=== PATIENT | female | born 1955 | race Caucasian/White ===

== ENCOUNTER → 2019-11-06 | Outpatient (CLI) | payer MEDICARE, MEDICAID ==
[2019-09-25 12:40] VITALS: BP 138/83
[2019-11-06 10:17] LABS: BASO # 0.1 x10^3/uL (0.0-0.2); BASO % 1 % (0-3); EOS # 0.2 x10^3/uL (0.0-0.7); EOS % 3 % (0-3); HEMATOCRIT 37.5 % (36.0-47.0); HEMOGLOBIN 12.6 g/dL (12.0-15.5); LYMPH # 2.8 x10^3/uL (1.0-4.8); LYMPH % 34 % (24-48); MEAN CORPUSCULAR HEMOGLOBIN 31 pg (25-35); MEAN CORPUSCULAR HGB CONC 34 g/dL (31-37); MEAN CORPUSCULAR VOLUME 93 fL (79-100); MONO # 0.8 x10^3/uL (0.0-1.1); MONO % 10 % (0-9); NEUT # 4.3 x10^3uL (1.8-7.7); NEUT % 53 % (31-73); PLATELET COUNT 245 x10^3/uL (140-400); RED BLOOD COUNT 4.06 x10^6/uL (3.50-5.40); RED CELL DISTRIBUTION WIDTH 13.2 % (11.5-14.5); WHITE BLOOD COUNT 8.1 x10^3/uL (4.0-11.0)
[2019-11-06 10:44] LABS: CALCIUM 9.2 mg/dL (8.5-10.1); CREATININE 1.7 mg/dL (0.6-1.0); GFR 30.4; POTASSIUM 4.5 mmol/L (3.5-5.1)
== END ==
LOC: LAB 09:48
PROVIDERS: ATTEND Internal Medicine Interventional Cardiology
DX: I10 Essential (primary) hypertension (principal); E78.2 Mixed hyperlipidemia
CPT/HCPCS: 36415; 80048; 80061; 85025

== ENCOUNTER → 2020-01-01 | Outpatient (CLI) | payer MEDICARE, MEDICAID ==
[2019-09-25 12:40] VITALS: BP 138/83
[~2020-01-01] MED LIST: HEPARIN PF 500 UNIT/5 ML DISP.SYRIN. ONE
--- NOTE | 2020-01-01 15:12 | RAD ---
DATE: 01/01/2020 1:00 PM EXAM: MAMMO NATHEN DIAG BILAT HISTORY: Bilateral breast tenderness. Patient is due for screening. Patient has no history of cancer but has poor IV access for which a right chest port has been placed. COMPARISON: 09/03/2017 Bilateral CC and MLO views of the breasts were performed. Bilateral breast tomosynthesis was performed in CC and MLO projections. This study was interpreted with the benefit of Computerized Aided Detection (CAD). FINDINGS: Breast Density: SCATTERED The breast parenchyma shows scattered fibroglandular densities. Breast parenchyma level B Interval placement of a right chest port. No suspicious masses, microcalcifications or architectural distortion is present to suggest malignancy in either breast. The visualized axillae are unremarkable. IMPRESSION: No mammographic evidence of malignancy. BI-RADS CATEGORY: 1 NEGATIVE RECOMMENDED FOLLOW-UP: 12M 12 MONTH FOLLOW-UP Annual screening mammography is recommended, unless clinically indicated sooner based on symptoms or change in physical exam. PQRS compliance statement: Patient information was entered into a reminder system with a target due date 01/01/2021 for the next mammogram. Mammography is a sensitive method for finding small breast cancers, but it does not detect them all and is not a substitute for careful clinical examination. A negative mammogram does not negate a clinically suspicious finding and should not result in delay in biopsying a clinically suspicious abnormality. "Our facility is accredited by the [employer] Mammography Program."
== END ==
LOC: MAMMO 12:12
PROVIDERS: ATTEND Family Medicine
DX: N64.4 Mastodynia (principal)
CPT/HCPCS: 77066; G0279; 77062

== ENCOUNTER → 2020-01-01 | Outpatient (CLI) | payer MEDICARE, MEDICAID ==
[~2020-01-01] MED LIST changes: +HEPARIN PF 500 UNIT/5 ML DISP.SYRIN. IVP ONE; -HEPARIN PF 500 UNIT/5 ML DISP.SYRIN. ONE
[2020-01-01 12:18] VITALS: BP 118/74
--- NOTE | 2020-01-01 12:18 | NUR ---
Jose arrived to unit via ambulation. Patients VS obtained and are stable. Patients port is accessed with 1.5in, 20g Montanez needle and flushed with 10cc NS and Heparin locked. Patients port deaccessed and bandage applied. Patient ambulated off of unit.
== END | disposition home or self-care (01) ==
LOC: OPINF 11:59
PROVIDERS: ATTEND Internal Medicine Interventional Cardiology
DX: Z45.2 Encounter for adjustment and management of vascular access device (principal); N64.4 Mastodynia; I10 Essential (primary) hypertension; E78.2 Mixed hyperlipidemia
CPT/HCPCS: 96523

== ENCOUNTER → 2020-01-23 | Outpatient (CLI) | payer MEDICARE, MEDICAID ==
[~2020-01-23] MED LIST changes: -HEPARIN PF 500 UNIT/5 ML DISP.SYRIN. IVP ONE; +HEPARIN PF 500 UNIT/5 ML DISP.SYRIN. ONE
[2020-01-23 11:21] LABS: HEMATOCRIT 36.9 % (36.0-47.0); HEMOGLOBIN 12.3 g/dL (12.0-15.5); RED CELL DISTRIBUTION WIDTH 13.1 % (11.5-14.5); WHITE BLOOD COUNT 7.4 x10^3/uL (4.0-11.0)
[2020-01-23 11:48] LABS: ALBUMIN 3.1 g/dL (3.4-5.0); CALCIUM 9.2 mg/dL (8.5-10.1); CREATININE 1.8 mg/dL (0.6-1.0); GFR 28.4; PHOSPHORUS 3.1 mg/dL (2.6-4.7); POTASSIUM 3.6 mmol/L (3.5-5.1); URIC ACID 5.1 mg/dL (2.6-6.0)
[2020-01-23 12:40] LABS: BILIRUBIN,URINE NEG (NEG); CLARITY,URINE HAZY; COLOR,URINE YELLOW; GLUCOSE,URINE 100 mg/dL (NEG); NITRITE,URINE NEG (NEG); UROBILINOGEN,URINE 0.2 mg/dL (0.2 mg/dL)
[2020-01-23 12:41] LABS: BACTERIA,URINE 0 /HPF (0-FEW); SQUAMOUS EPITHELIAL CELL,UR FEW /LPF
[2020-01-23 16:37] VITALS: BP 114/84
[2020-01-24 09:09] LABS: CALCIUM PTH 9.4 mg/dL (8.7-10.3); CREATININE PTH 1.62 mg/dL (0.57-1.00); PTH INTACT 66 pg/mL (15-65)
[2020-01-25 17:07] LABS: ALBUMIN RAND UR 20.3 % (.); ALPHA 1 RAND UR 5.6 % (.); ALPHA 2 RAND UR 18.7 % (.); BETA RAND UR 27.3 % (.); GAMMA RAND UR 28.1 % (.); PROTEIN UR RAND 18.8 mg/dL (Not Estab.)
== END | disposition home or self-care (01) ==
LOC: OPINF 10:11
PROVIDERS: ATTEND Internal Medicine Nephrology
DX: Z45.2 Encounter for adjustment and management of vascular access device (principal); I12.9 Hypertensive chronic kidney disease with stage 1 through stage 4 chronic kidney disease, or unspecified chronic kidney disease; N18.3 Chronic kidney disease, stage 3 (moderate); D63.1 Anemia in chronic kidney disease; E11.21 Type 2 diabetes mellitus with diabetic nephropathy; E78.2 Mixed hyperlipidemia; Z79.899 Other long term (current) drug therapy
CPT/HCPCS: 36415; 36592; 80069; 81001; 82043; 82306; 83735; 83970; 84166; 84550; 85027; 87086; 96523

== ENCOUNTER → 2020-03-04 | Outpatient (CLI) | payer MEDICARE, MEDICAID ==
[~2020-03-04] MED LIST changes: +HEPARIN PF 500 UNIT/5 ML DISP.SYRIN. IVP ONE; -HEPARIN PF 500 UNIT/5 ML DISP.SYRIN. ONE
[2020-03-04 12:43] VITALS: BP 127/65
--- NOTE | 2020-03-04 13:03 | NUR ---
PATIENT AMBULATED INTO ROOM 127 VITALS STABLE PORT WAS ACCESSED AND FLUSHED WITH HEPARIN PORT WAS THEN DEACCESSED WITH NO COMPLICATIONS PATIENT TO DISCHARGE HOME
== END | disposition home or self-care (01) ==
LOC: OPINF 12:08
PROVIDERS: ATTEND Internal Medicine Nephrology
DX: Z45.2 Encounter for adjustment and management of vascular access device (principal); I12.9 Hypertensive chronic kidney disease with stage 1 through stage 4 chronic kidney disease, or unspecified chronic kidney disease; E11.22 Type 2 diabetes mellitus with diabetic chronic kidney disease; N18.3 Chronic kidney disease, stage 3 (moderate); D63.1 Anemia in chronic kidney disease; E78.5 Hyperlipidemia, unspecified; E11.21 Type 2 diabetes mellitus with diabetic nephropathy; Z79.899 Other long term (current) drug therapy
CPT/HCPCS: 96374; 96523

== ENCOUNTER → 2020-04-01 | Outpatient (CLI) | payer MEDICARE, MEDICAID ==
[~2020-04-01] MED LIST changes: +HEPARIN PF 500 UNIT/5 ML DISP.SYRIN. ONE
[2020-04-01 13:06] VITALS: BP 113/69
--- NOTE | 2020-04-01 13:06 | NUR ---
NURSING NOTE PT AMBULATE TO ROOM 103 FOR OUTPT PORT FLUSH AND HEP LOCK. PORT ACCESSED WITH 20G 1 INCH URENA NEEDLE. GOOD BLOOD RETURN. PORT FLUSHED WITH 20 CC NS AND HEP LOCKED. NO COMPLICATIONS. PT AMBULATED OFF UNIT. SULTANA SAMPSON.
== END | disposition home or self-care (01) ==
LOC: OPINF 12:25
PROVIDERS: ATTEND Internal Medicine Nephrology
DX: Z45.2 Encounter for adjustment and management of vascular access device (principal); I12.9 Hypertensive chronic kidney disease with stage 1 through stage 4 chronic kidney disease, or unspecified chronic kidney disease; E11.22 Type 2 diabetes mellitus with diabetic chronic kidney disease; N18.30 Chronic kidney disease, stage 3 unspecified; D63.1 Anemia in chronic kidney disease; E78.5 Hyperlipidemia, unspecified; E11.21 Type 2 diabetes mellitus with diabetic nephropathy; Z79.899 Other long term (current) drug therapy
CPT/HCPCS: 96523

== ENCOUNTER → 2020-04-10 | Outpatient (CLI) | payer MEDICARE, MEDICAID ==
[2020-04-01 13:06] VITALS: BP 113/69
--- NOTE | 2020-04-10 08:29 | RAD ---
VENOUS LOWER EXTREMITY RIGHT History: Reason: RT LEG SWELLING / Spl. Instructions: / History: Comparison: None. Discussion: Multiple longitudinal and transverse high resolution real-time images of the venous system of right lower extremity were obtained with color and Doppler sampling. The common femoral, superficial femoral, popliteal and proximal calf veins are all patent and demonstrate normal flow and compressibility. Normal respiratory phasicity and augmentation is present. Impression: 1. No evidence of deep vein thrombosis. Electronically signed by: Johnny Morse DO (04/10/2020 8:26 AM) [id number]
== END ==
LOC: US 07:51
PROVIDERS: ATTEND Family Medicine
DX: R22.41 Localized swelling, mass and lump, right lower limb (principal)
CPT/HCPCS: 93971

== ENCOUNTER → 2020-05-27 | Outpatient (CLI) | payer MEDICARE, MEDICAID ==
[2020-04-29 12:29] VITALS: BP 110/72
--- NOTE | 2020-05-27 13:20 | NUR ---
OUTPATIENT VISIT NOTE: PT ARRIVES FOR PORT FLUSH. VS ASSESSED. T-986., P-82, R-20, BP-116/68, SAO2 96%. LABS ORDERED, ET HEPARIN FLUSH PREPARED. PORT ACCESSED, LABS DRAWN, ET HEPARIN FLUSH ADMINISTERED. PT TOLERATED WELL. APPOINTMENT MADE FOR NEXT VISIT PRIOR TO LEAVING.
== END ==
LOC: LAB 12:26
PROVIDERS: ATTEND Nurse Practitioner Family
DX: I12.9 Hypertensive chronic kidney disease with stage 1 through stage 4 chronic kidney disease, or unspecified chronic kidney disease (principal); E11.21 Type 2 diabetes mellitus with diabetic nephropathy; E11.9 Type 2 diabetes mellitus without complications; N25.81 Secondary hyperparathyroidism of renal origin; R80.1 Persistent proteinuria, unspecified
CPT/HCPCS: 82306

== ENCOUNTER → 2020-07-26 | Outpatient (CLI) | payer MEDICARE, MEDICAID ==
[2020-06-17 12:45] VITALS: BP 108/85
[~2020-07-26] MED LIST changes: -HEPARIN PF 500 UNIT/5 ML DISP.SYRIN. ONE
--- NOTE | 2020-07-26 14:11 | NUR ---
NSG NOTE; OUT PT LABS PT HERE TO ROOM 105 AT 1320 VIA AMB ACCOMP BY SELF LABS DRAWN PER PROTOCOL FROM PORT. POST FLUSHED WITH NS 20 ML AND HEPARIN FLUSH AND SITE DC'D PT DISCHARGED HOME
[2020-07-26 14:47] LABS: ALBUMIN/GLOBULIN RATIO 0.9 (1.0-1.7); CREATININE 1.8 mg/dL (0.6-1.0); GFR 28.4; TOTAL BILIRUBIN 0.4 mg/dL (0.2-1.0); TOTAL PROTEIN 6.3 g/dL (6.4-8.2)
[2020-07-27 12:08] LABS: FREE T4 1.09 ng/dL (0.76-1.46); THYROID STIM HORMONE (TSH) 1.025 uIU/mL (0.358-3.740)
== END ==
LOC: LAB 12:39
PROVIDERS: ATTEND Internal Medicine Endocrinology, Diabetes & Metabolism
DX: E11.65 Type 2 diabetes mellitus with hyperglycemia (principal); E11.8 Type 2 diabetes mellitus with unspecified complications; I10 Essential (primary) hypertension; E78.5 Hyperlipidemia, unspecified
CPT/HCPCS: 36415; 36591; 80053; 80061; 84439; 84443

== ENCOUNTER → 2020-08-19 | Outpatient (CLI) | payer MEDICARE, MEDICAID ==
[2020-06-17 12:45] VITALS: BP 108/85
[2020-08-19 11:10] LABS: HEMATOCRIT 37.2 % (36.0-47.0); HEMOGLOBIN 12.4 g/dL (12.0-15.5)
[2020-08-19 11:19] LABS: ALBUMIN 3.3 g/dL (3.4-5.0); CALCIUM 9.3 mg/dL (8.5-10.1); CREATININE 1.7 mg/dL (0.6-1.0); GFR 30.3; MAGNESIUM 2.1 mg/dL (1.8-2.4); PHOSPHORUS 3.8 mg/dL (2.6-4.7); POTASSIUM 3.9 mmol/L (3.5-5.1); URIC ACID 5.2 mg/dL (2.6-6.0)
[2020-08-19 12:08] LABS: BACTERIA,URINE FEW /HPF (0-FEW); BILIRUBIN,URINE NEG (NEG); CLARITY,URINE CLEAR; COLOR,URINE YELLOW; GLUCOSE,URINE NEG (NEG); NITRITE,URINE NEG (NEG); SQUAMOUS EPITHELIAL CELL,UR MOD /LPF; UROBILINOGEN,URINE 0.2 mg/dL (0.2 mg/dL)
[2020-08-19 17:09] LABS: CALCIUM PTH 9.4 mg/dL (8.7-10.3); CREATININE PTH 1.59 mg/dL (0.57-1.00); PTH INTACT 79 pg/mL (15-65)
[2020-08-19 17:09] LABS: MICROALB RD UR 46.6 ug/mL (Not Estab.)
[2020-08-19 20:49] LABS: CREATININE,RANDOM URINE 128.3 mg/dL (Not Establ.)
== END ==
LOC: LAB 09:56
PROVIDERS: ATTEND Nurse Practitioner Family
DX: I12.9 Hypertensive chronic kidney disease with stage 1 through stage 4 chronic kidney disease, or unspecified chronic kidney disease (principal); E11.21 Type 2 diabetes mellitus with diabetic nephropathy; N18.4 Chronic kidney disease, stage 4 (severe); D63.1 Anemia in chronic kidney disease; E78.5 Hyperlipidemia, unspecified; N25.81 Secondary hyperparathyroidism of renal origin; E55.9 Vitamin D deficiency, unspecified; R80.1 Persistent proteinuria, unspecified; R53.83 Other fatigue; R60.0 Localized edema; Z68.41 Body mass index [BMI] 40.0-44.9, adult
CPT/HCPCS: 36591; 80069; 81001; 82043; 82570; 83735; 83970; 84156; 84550; 85014; 85018; 87086

== ENCOUNTER → 2020-09-16 | Outpatient (CLI) | payer MEDICARE, MEDICAID ==
[2020-09-16 12:43] VITALS: BP 144/86
--- NOTE | 2020-09-16 13:06 | NUR ---
PATIENT AMBULATED TO ROOM 109 FOR HEPARIN FLUSH. VS OBTAINED AND ARE STABLE. CHEST PORT ACCESSED WITH URENA NEEDLE 1 INCH , GOOD BLOOD RETURN, FLUSHED WITH NS 20 ML, FLUSHED WITH HEPARIN 5 ML. CHEST PORT DE-ACCESSED, DRESSING APPLIED. PATIENT TOLERATED PROCEDURE WITHOUT DIFFICULTIES. PATIENT LEFT ROOM VIA AMBULATION ACCOMP BY SELF.
== END ==
LOC: OPINF 12:19
PROVIDERS: ATTEND Internal Medicine Nephrology
DX: Z45.2 Encounter for adjustment and management of vascular access device (principal); I12.9 Hypertensive chronic kidney disease with stage 1 through stage 4 chronic kidney disease, or unspecified chronic kidney disease; E11.22 Type 2 diabetes mellitus with diabetic chronic kidney disease; N18.4 Chronic kidney disease, stage 4 (severe); E11.21 Type 2 diabetes mellitus with diabetic nephropathy; E78.5 Hyperlipidemia, unspecified; Z79.899 Other long term (current) drug therapy
CPT/HCPCS: 96374; 96523

== ENCOUNTER → 2021-05-13 | Outpatient (CLI) | payer MEDICARE, MEDICAID ==
[2021-05-12 12:47] VITALS: BP 105/67
--- NOTE | 2021-05-13 15:26 | RAD ---
Bilateral digital screening 2-D and 3-D (digital breast tomosynthesis) mammogram: Reason for examination: Routine screening. Comparison: Mammograms from 01/01/2020 and 09/03/2017. Interpretation was made with the benefit of CAD. FINDINGS: Breast density: Category B. There are scattered areas of fibroglandular density. No suspicious breast mass, malignant appearing calcifications, or architectural distortion is seen. T he patient's port obscures a portion of the inner right breast. IMPRESSION: No evidence of malignancy. Assessment: BI-RADS 1. Negative. Recommendation: Routine screening mammograms. The patient will receive a letter with the results in the mail. Patient information will be entered i nto the mammography reminder system with a target recall date for the next mammogram. A reminder wili er will be generated. Electronically signed by: Kaya Mayer MD (05/13/2021 3:24 PM) [id number]
--- NOTE | 2021-05-14 08:04 | RAD ---
EXAM: Dual energy x-ray absorptiometry (DEXA). HISTORY: Screening. COMPARISON: None available. TECHNIQUE: Dual energy x-ray absorptiometry of the lumbar spine and right hip was performed. Calcula tion of bone mineral density based on standard deviations above or below the expected young adult nor mal value (T-score) was completed. FINDINGS: The average bone mineral density in the 1st through 4th lumbar vertebrae is 1.044 g/cmxcm, corresponding with a T-score of -1.1. The average total bone mineral density in the right hip is 0.883 g/cmxcm, corresponding with a T-sco re of -0.6. IMPRESSION: Findings are within the range of normal bone density with relation to the spine and right hip. Note: Definitions established by the World Health Organization: 1. Normal: T-score is -1.0 or above. 2. Osteopenia: T-score is between -1.0 and -2.5 . 3. Osteoporosis: T-score is -2.5 or below. Electronically signed by: Maria Victoria Plascencia MD (05/14/2021 8:02 AM) [id number]
== END ==
LOC: MAMMO 09:59
PROVIDERS: ATTEND Family Medicine
DX: Z12.31 Encounter for screening mammogram for malignant neoplasm of breast (principal); Z78.0 Asymptomatic menopausal state
CPT/HCPCS: 77063; 77067; 77080

== ENCOUNTER → 2021-07-08 | Outpatient (CLI) | payer MEDICARE, MEDICAID ==
[2021-07-08 12:40] VITALS: BP 130/79
[2021-07-08 13:19] LABS: BASO # 0.1 x10^3/uL (0.0-0.2); BASO % 1 % (0-3); EOS # 0.2 x10^3/uL (0.0-0.7); EOS % 3 % (0-3); HEMATOCRIT 36.9 % (36.0-47.0); HEMOGLOBIN 12.2 g/dL (12.0-15.5); LYMPH # 2.8 x10^3/uL (1.0-4.8); LYMPH % 33 % (24-48); MEAN CORPUSCULAR HEMOGLOBIN 30 pg (25-35); MEAN CORPUSCULAR HGB CONC 33 g/dL (31-37); MEAN CORPUSCULAR VOLUME 91 fL (79-100); MONO # 0.8 x10^3/uL (0.0-1.1); MONO % 10 % (0-9); NEUT # 4.7 x10^3uL (1.8-7.7); NEUT % 54 % (31-73); PLATELET COUNT 263 x10^3/uL (140-400); RED BLOOD COUNT 4.06 x10^6/uL (3.50-5.40); RED CELL DISTRIBUTION WIDTH 13.2 % (11.5-14.5); WHITE BLOOD COUNT 8.6 x10^3/uL (4.0-11.0)
[2021-07-08 13:27] LABS: ALBUMIN 3.2 g/dL (3.4-5.0); ALBUMIN/GLOBULIN RATIO 0.9 (1.0-1.7); CALCIUM 8.7 mg/dL (8.5-10.1); CREATININE 1.9 mg/dL (0.6-1.0); GFR 26.6; POTASSIUM 4.2 mmol/L (3.5-5.1); TOTAL BILIRUBIN 0.3 mg/dL (0.2-1.0); TOTAL PROTEIN 6.9 g/dL (6.4-8.2)
[2021-07-09 19:21] LABS: CHOLESTEROL/HDL RATIO 3.7
== END | disposition home or self-care (01) ==
LOC: OPINF 12:21
PROVIDERS: ATTEND Internal Medicine Interventional Cardiology
DX: Z45.2 Encounter for adjustment and management of vascular access device (principal); E78.5 Hyperlipidemia, unspecified; I10 Essential (primary) hypertension; Z72.4 Inappropriate diet and eating habits; Z78.0 Asymptomatic menopausal state
CPT/HCPCS: 36415; 36592; 80053; 80061; 85025; 96523

== ENCOUNTER → 2021-08-12 | Outpatient (CLI) | payer MEDICARE, MEDICAID ==
[2021-08-12 15:48] VITALS: BP 131/83
--- NOTE | 2021-08-12 15:49 | NUR ---
Nursing Note outpatient pt ambulated to room 103 for outpt port flush and hep lock. no complications.
== END | disposition home or self-care (01) ==
LOC: OPINF 15:08
PROVIDERS: ATTEND Internal Medicine Nephrology
DX: Z45.2 Encounter for adjustment and management of vascular access device (principal); I10 Essential (primary) hypertension; E78.5 Hyperlipidemia, unspecified; Z78.0 Asymptomatic menopausal state
CPT/HCPCS: 96523

== ENCOUNTER → 2021-09-08 | Outpatient (CLI) | payer MEDICARE, MEDICAID ==
[2021-08-12 15:48] VITALS: BP 131/83
[2021-09-08 13:38] LABS: ALBUMIN 3.2 g/dL (3.4-5.0); CALCIUM 8.9 mg/dL (8.5-10.1); CREATININE 2.4 mg/dL (0.6-1.0); GFR 20.3
[2021-09-08 13:39] LABS: CLARITY,URINE CLEAR; COLOR,URINE YELLOW; GLUCOSE,URINE >=1000 mg/dL (NEG)
[2021-09-08 13:40] LABS: BACTERIA,URINE MOD /HPF (0-FEW); NITRITE,URINE NEG (NEG); RBC,URINE OCC /HPF (0-2); SQUAMOUS EPITHELIAL CELL,UR MOD /LPF; UROBILINOGEN,URINE 0.2 mg/dL (0.2 mg/dL); WBC,URINE 20-40 /HPF (0-4)
[2021-09-09 11:14] LABS: CALCIUM PTH 9.2 mg/dL (8.7-10.3); CREATININE PTH 1.95 mg/dL (0.57-1.00); PTH INTACT 81 pg/mL (15-65)
[2021-09-10 18:32] LABS: ALBUMIN RAND UR 36.5 % (.); ALPHA 1 RAND UR 4.1 % (.); ALPHA 2 RAND UR 14.1 % (.); BETA RAND UR 21.9 % (.); GAMMA RAND UR 23.4 % (.)
== END | disposition home or self-care (01) ==
LOC: OPINF 12:07
PROVIDERS: ATTEND Nurse Practitioner Family
DX: Z45.2 Encounter for adjustment and management of vascular access device (principal); I12.9 Hypertensive chronic kidney disease with stage 1 through stage 4 chronic kidney disease, or unspecified chronic kidney disease; E11.22 Type 2 diabetes mellitus with diabetic chronic kidney disease; N18.4 Chronic kidney disease, stage 4 (severe); D63.1 Anemia in chronic kidney disease; E78.5 Hyperlipidemia, unspecified; R80.1 Persistent proteinuria, unspecified; N25.81 Secondary hyperparathyroidism of renal origin; E55.9 Vitamin D deficiency, unspecified; R53.83 Other fatigue
CPT/HCPCS: 36415; 80069; 81001; 82043; 82728; 83540; 83550; 83735; 83970; 84166; 84550; 85018; 87086; 96523

== ENCOUNTER → 2021-10-13 | Outpatient (CLI) | payer MEDICARE, MEDICAID ==
[2021-10-13 13:15] VITALS: BP 142/78
== END | disposition home or self-care (01) ==
LOC: OPINF 11:36
PROVIDERS: ATTEND Internal Medicine Nephrology
DX: Z45.2 Encounter for adjustment and management of vascular access device (principal); I12.9 Hypertensive chronic kidney disease with stage 1 through stage 4 chronic kidney disease, or unspecified chronic kidney disease; E11.22 Type 2 diabetes mellitus with diabetic chronic kidney disease; N18.4 Chronic kidney disease, stage 4 (severe); D63.1 Anemia in chronic kidney disease; E78.5 Hyperlipidemia, unspecified
CPT/HCPCS: 96523

== ENCOUNTER → 2021-10-13 | Outpatient (CLI) | payer MEDICARE, MEDICAID ==
[2021-08-12 15:48] VITALS: BP 131/83
[2021-10-13 15:55] LABS: ALBUMIN 3.3 g/dL (3.4-5.0); CALCIUM 9.5 mg/dL (8.5-10.1); CREATININE 1.8 mg/dL (0.6-1.0); GFR 28.2; PHOSPHORUS 3.7 mg/dL (2.6-4.7); POTASSIUM 4.5 mmol/L (3.5-5.1)
[2021-10-15 15:13] LABS: ALBUMIN RAND UR 37.1 % (.); ALPHA 1 RAND UR 9.6 % (.); ALPHA 2 RAND UR 16.6 % (.); BETA RAND UR 17.4 % (.); GAMMA RAND UR 19.3 % (.); PROTEIN UR RAND 6.4 mg/dL (Not Estab.)
== END | disposition home or self-care (01) ==
LOC: LAB 11:40 → OPINF 11:40
PROVIDERS: ATTEND Nurse Practitioner Adult Health
DX: I12.9 Hypertensive chronic kidney disease with stage 1 through stage 4 chronic kidney disease, or unspecified chronic kidney disease (principal); E11.22 Type 2 diabetes mellitus with diabetic chronic kidney disease; N18.4 Chronic kidney disease, stage 4 (severe); D63.1 Anemia in chronic kidney disease; N25.81 Secondary hyperparathyroidism of renal origin; E55.9 Vitamin D deficiency, unspecified; E78.5 Hyperlipidemia, unspecified; Z79.4 Long term (current) use of insulin
CPT/HCPCS: 36415; 36591; 80069; 82607; 84166; 96523

== ENCOUNTER → 2021-10-13 | Outpatient (CLI) | payer MEDICARE, MEDICAID ==
[2021-08-12 15:48] VITALS: BP 131/83
--- NOTE | 2021-10-13 14:30 | NUR ---
Pt ambulated independently to room 113. Vitals assessed. Port accessed and flushed with heparinized saline. Port flushed easily. Unable to draw blood back on port. Pt labs drawn on left upper arm. Pt ambulated out of hospital independently.
[2021-10-13 15:56] LABS: ALBUMIN 3.3 g/dL (3.4-5.0); ALBUMIN/GLOBULIN RATIO 0.9 (1.0-1.7); CALCIUM 9.6 mg/dL (8.5-10.1); CREATININE 1.8 mg/dL (0.6-1.0); GFR 28.2; POTASSIUM 4.6 mmol/L (3.5-5.1); TOTAL BILIRUBIN 0.3 mg/dL (0.2-1.0); TOTAL PROTEIN 6.9 g/dL (6.4-8.2)
[2021-10-14 04:09] LABS: THYROXINE 10.2 ug/dL (4.5-12.0)
[2021-10-14 21:54] LABS: CHOLESTEROL/HDL RATIO 2.7; THYROID STIM HORMONE (TSH) 2.099 uIU/mL (0.358-3.740)
== END | disposition home or self-care (01) ==
LOC: OPINF 11:44 → LAB 11:44
PROVIDERS: ATTEND Internal Medicine Endocrinology, Diabetes & Metabolism
DX: E78.5 Hyperlipidemia, unspecified (principal); I12.9 Hypertensive chronic kidney disease with stage 1 through stage 4 chronic kidney disease, or unspecified chronic kidney disease; E11.22 Type 2 diabetes mellitus with diabetic chronic kidney disease; N18.4 Chronic kidney disease, stage 4 (severe); D63.1 Anemia in chronic kidney disease; E11.8 Type 2 diabetes mellitus with unspecified complications; Z79.4 Long term (current) use of insulin
CPT/HCPCS: 36415; 80053; 80061; 82985; 84436; 84443